=== PATIENT | female | born 1980 | race Caucasian/White ===

== ENCOUNTER 2020-12-25 15:51 | Outpatient (CLI) | payer BC, SELFPAY ==
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
== END 2020-12-25 15:52 | disposition home or self-care (01) ==
LOC: ANHIMG 15:58
PROVIDERS: PCP Internal Medicine; Visit Provider Internal Medicine
DX: M25.512 Pain in left shoulder (principal); M25.552 Pain in left hip
CPT/HCPCS: 73030; 73502

== ENCOUNTER 2021-05-24 14:15 | Outpatient (RCR) | payer BC, SELFPAY ==
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
--- NOTE | 2021-03-23 15:44 | PCPTNOTE ---
Patient called & cancelled scheduled appointment this date due to 's appointment running late.
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
== END 2021-05-25 09:48 | disposition home or self-care (01) ==
LOC: ANHPT 14:15
PROVIDERS: PCP Internal Medicine; Visit Provider Internal Medicine
DX: R51.9 Headache, unspecified (principal)
CPT/HCPCS: 97110; 97140; 97161

== ENCOUNTER 2021-09-30 16:07 | Outpatient (CLI) | payer BC, SELFPAY ==
--- NOTE | ~2021-09-30 | MR_ITS ---
EXAMINATION: MR lumbar spine wo con DATE: 09/30/2021 16:47 INDICATION: Low back pain radiating to the hips. Trochanteric bursitis of left hip. TECHNIQUE: Magnetic resonance imaging (MRI) of the lumbar spine was performed without intravenous con trast. Sequences included sagittal T2-weighted FSE, sagittal T2-weighted FS FSE, sagittal T1-weighted FSE, and axial T2-weighted FSE. COMPARISON: None FINDINGS: There is 3 degrees levocurvature of lumbar spine. There is a transitional segment at lumbos acral junction that is designated L5. There is mild chronic anterior wedging of T11 and T12 vertebral bodies. There are Schmorl's nodes at all levels. There is 3 mm retrolisthesis of L4 on L5. There is moderately decreased disc height at L4-L5 with endplate remodeling. The distal spinal cord signal int ensity is normal. The conus medullaris is at L1. The following disc levels are specifically discussed : L1-L2: The disc does not extend beyond the endplate margin. There is mild bilateral facet joint osteo arthritis. There is no neural foraminal stenosis. There is no central canal stenosis. L2-L3: The disc is mildly bulging. There is mild bilateral facet joint osteoarthritis. There is mild bilateral neural foraminal stenosis. There is no central canal stenosis. L3-L4: The disc is mildly bulging. There is mild bilateral facet joint osteoarthritis. There is mild bilateral neural foraminal stenosis. There is mild central canal stenosis. L4-L5: The disc is bulging with superimposed left central extrusion and mass effect on left L5 nerve root in left lateral recess. There is mild bilateral facet joint osteoarthritis. There is mild right and moderate left neural foraminal stenosis. There is mild central canal stenosis. There is moderate stenosis of left lateral recess. L5-S1: The disc does not extend beyond the endplate margin. There is no facet joint osteoarthritis. T here is no neural foraminal stenosis. There is no central canal stenosis. IMPRESSION: 1. Moderate spondylosis at L4-L5 where an extrusion exerts mass effect on the left L5 nerve root. Oth erwise mild lumbar spondylosis. Reviewed, dictated and finalized at location A. IMPRESSION: 1. Moderate spondylosis at L4-L5 where an extrusion exerts mass effect on the l eft L5 nerve root. Otherwise mild lumbar spondylosis.
== END 2021-09-30 16:08 | disposition home or self-care (01) ==
PROVIDERS: PCP Internal Medicine; Visit Provider Physician Assistant Surgical
DX: M70.62 Trochanteric bursitis, left hip (principal); M47.816 Spondylosis without myelopathy or radiculopathy, lumbar region
CPT/HCPCS: 72148

== ENCOUNTER 2021-10-14 09:50 | Outpatient (CLI) | payer BC, SELFPAY ==
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
== END 2021-10-14 09:51 | disposition home or self-care (01) ==
LOC: ANHNEURO 09:51
PROVIDERS: PCP Internal Medicine; Visit Provider Orthopaedic Surgery Hand Surgery
DX: G56.03 Carpal tunnel syndrome, bilateral upper limbs (principal)
CPT/HCPCS: 95886; 95911

== ENCOUNTER 2022-10-20 15:08 | Outpatient (CLI) | payer BC, SELFPAY ==
--- NOTE | ~2022-10-20 | MR_ITS ---
MRI of the lumbar spine Clinical History: Spinal stenosis Technique: Axial T2-weighted images, and sagittal T1-weighted, T2-weighted, and T2 fat-sat images wer e acquired. COMPARISON: 09/30/2021 Findings: Minimal grade 1 retrolisthesis of L4 over L5 is unchanged. No fracture identified. Osseous alignment is unchanged overall. No suspicious bone marrow signal abnormality seen. At L1-L2, there is no disc bulge or herniation. There is minimal facet arthropathy. No spinal canal s tenosis or neural foraminal narrowing. At L2-L3, there is no disc bulge or herniation. There is minimal facet joint hypertrophy. No central canal stenosis or neural foraminal narrowing. At L3-L4, there is minimal disc bulge with mild facet arthropathy. No central canal stenosis or neura l foraminal narrowing. At L4-L5, there is mild disc bulge with superimposed left paracentral disc extrusion extending inferi sumit behind the L5 vertebral body. Bilateral neural foramina are preserved. There is probable impinge ment of the descending left-sided L5-S1 nerve root. At L5-S1, there is no disc bulge or herniation. No spinal canal stenosis or neural foraminal narrowin g. Paravertebral soft tissues are unremarkable. Impression: Left paracentral disc extrusion at L4-L5 extending inferiorly, and probably impinging the descending left-sided L5-S1 nerve root. Reviewed, dictated and finalized at [facility]. Impression: Left paracentral disc extrusion at L4-L5 extending inferiorly, and probably imp inging the descending left-sided L5-S1 nerve root.
--- NOTE | ~2022-10-20 | CT_ITS ---
EXAMINATION: CT lumbar spine wo con DATE: 10/20/2022 15:33 INDICATION: Spinal stenosis TECHNIQUE: Computed tomography (CT) of the lumbar spine was performed without intravenous contrast. A utomated exposure control and iterative reconstruction technique were employed. The dose-length produ ct was 263.18 mGy-cm. COMPARISON: MRI studies dated 10/20/2022 and 09/30/2021 FINDINGS: There is a transitional lumbosacral segment which is sacralized on the left and lumbarized on the rig ht with 5 more cephalad nonrib-bearing lumbar segments. Of note on the prior MRI studies the transiti onal segment has been designated as L5. No imaging of the thorax is available at this institution to assess for number of thoracic segments. To maintain continuity with the previously established number ing convention the cephalad-most nonrib-bearing segment will be designated T12 and the lumbosacral se gment L5, realizing that there may be contradictions when comparing with any outside imaging utilizin g a different designation of the vertebral levels. 5 degrees lumbar levocurvature. Sagittal alignment is normal. Chronic minimal likely physiologic ante rior wedging at T12 and posterior wedging at L5. Remaining lumbar vertebral body heights are normal. There are multiple Schmorl's nodes involving the majority the endplates in the lumbar and visualized lower thoracic spine. Moderate disc height loss at L4-L5. Cholecystectomy clips the gallbladder fossa . Visualized portions of bowels are unremarkable including a normal appendix. Paravertebral soft tiss ues are unremarkable. The following disc levels are specifically discussed: T11-T12: Disc is mildly bulging. There is mild bilateral facet joint osteoarthritis. There is no neur al foraminal stenosis. There is no central canal stenosis. T12-L1: Disc is mildly bulging. There is minimal bilateral facet joint osteoarthritis. There is no ne ural foraminal stenosis. There is no central canal stenosis. L1-L2: The disc does not extend beyond the endplate margin. There is mild bilateral facet joint osteo arthritis. There is no neural foraminal stenosis. There is no central canal stenosis. L2-L3: Disc is mildly bulging. There is mild bilateral facet joint osteoarthritis. There is mild bila teral neural foraminal stenosis. There is no central canal stenosis. L3-L4: Disc is bulging. There is mild bilateral facet joint osteoarthritis. There is mild bilateral n eural foraminal stenosis. There is mild central canal stenosis. L4-L5: Disc is bulging with superimposed left paracentral disc extrusion with disc material extending up to 11 mm inferior to the level of the superior endplate of L5 and significantly narrowing the lef t lateral recess. There is mild bilateral facet joint osteoarthritis. There is moderate left and mild to moderate right neural foraminal stenosis. There is mild central canal stenosis. L5-S1: The disc does not extend beyond the endplate margin. There is no facet joint osteoarthritis. T here is no neural foraminal stenosis. There is no central canal stenosis. IMPRESSION: 1. Moderate spondylosis at L4-L5 where there is disc extrusion severely narrowing the left lateral re cess and likely exerting mass effect upon the traversing left L5 nerve root. Correlate clinically for muscle weakness of great toe extension and sensory change of the medial foot and great toe. 2. Transitional lumbosacral segment. See discussion in the first paragraph regarding the numbering co nvention utilized for this and the prior studies which could potentially conflict with outside imagin g. Reviewed, dictated and finalized at location A. IMPRESSION: 1. Moderate spondylosis at L4-L5 where there is disc extrusion severely narrowi ng the left lateral recess and likely exerting mass effect upon
== END 2022-10-20 15:09 | disposition home or self-care (01) ==
PROVIDERS: PCP Internal Medicine
DX: M54.16 Radiculopathy, lumbar region (principal); M47.815 Spondylosis without myelopathy or radiculopathy, thoracolumbar region; Q76.49 Other congenital malformations of spine, not associated with scoliosis
CPT/HCPCS: 72131; 72148